=== PATIENT | female | born 1965 | race Caucasian/White ===

== ENCOUNTER 2025-04-22 13:18 | Emergency (ER) | payer BC ==
[2025-04-22] MEDS ORDERED: Ketorolac Tromethamine 30 MG (1 mL) VIAL ONE (14:46)
[2025-04-22] MEDS ORDERED: Cyclobenzaprine 10 MG TAB ONE (14:47)
== END 2025-04-22 16:55 | disposition home or self-care (01) ==
LOC: ERS 13:18
DX: S39.011A Strain of muscle, fascia and tendon of abdomen, initial encounter (principal); X50.1XXA Overexertion from prolonged static or awkward postures, initial encounter; Y93.89 Activity, other specified
CPT/HCPCS: 71046; 96372; J1885

== ENCOUNTER 2025-08-17 08:47 | Outpatient (CLI) | payer BC | END 2025-08-17 08:48 | disposition home or self-care (01) | LOC: BICMAMMO 08:47 | PROVIDERS: ATTEND Family Medicine | DX: Z12.31 Encounter for screening mammogram for malignant neoplasm of breast (principal); Z90.12 Acquired absence of left breast and nipple; Z98.890 Other specified postprocedural states | CPT/HCPCS: 77063; 77067 ==

== ENCOUNTER 2025-08-18 08:06 | Outpatient (CLI) | payer BC | END 2025-08-18 08:07 | disposition home or self-care (01) | LOC: CT 08:06 | PROVIDERS: ATTEND Specialist | DX: K43.9 Ventral hernia without obstruction or gangrene (principal); K57.30 Diverticulosis of large intestine without perforation or abscess without bleeding; Z90.49 Acquired absence of other specified parts of digestive tract | CPT/HCPCS: 74177 ==